=== PATIENT | male | born 1945 | race Caucasian/White ===

== ENCOUNTER 2019-02-05 13:45 | Outpatient (CLI) | payer OTHER ==
--- NOTE | 2019-02-05 16:36 | HP ---
HISTORY OF PRESENT ILLNESS: Mr. Connor Doyle is a very pleasant 74-year-old gentleman, who presents to the wound center for evaluation of a large wound of the scalp, subsequent to surgery for skin carcinoma. The patient states that a lesion of his scalp was noted approximately 4-5 months ago by Dermatology. The patient states he underwent Mohs surgery by Dermatology. He states that a referral to Plastic Surgery was required, however, for complete excision. The patient states that at the time of surgery by Plastic Surgery, Integra was applied to the wound bed. The patient states he underwent a 2nd procedure by Plastic Surgery in [place] for a lesion over the left lateral scalp. The patient states that he has moved from [place] to the [facility] in order to be closer to family. The patient's medical history is significant for chronic lymphocytic leukemia, for which he is presently under the care of Oncology. The patient states that he has seen 2 plastic surgeons here in the [facility]. The patient was referred to the wound center by Dr. Hedrick on 01/22/2019. The patient states that he has been performing wet-to-dry dressing changes for his scalp wound. He states he is performing the wet-to-dry dressing changes with normal saline. The patient states that he has received negative pressure therapy for treatment of his scalp wound. PAST MEDICAL HISTORY: 1. Coronary artery disease. 2. Testicular carcinoma. 3. CLL. PAST SURGICAL HISTORY: Surgery for testicular CA. MEDICATIONS: 1. Brilinta. 2. Vitamin C. ALLERGIES: NO KNOWN DIAGNOSED ALLERGIES. SOCIAL HISTORY: Negative for tobacco use. The patient admits to the consumption of one glass of wine per week. FAMILY HISTORY: Significant for coronary artery disease. The patient's father was diagnosed with coronary artery disease. Family history is negative for diabetes mellitus. PHYSICAL EXAMINATION: VITAL SIGNS: Temperature 97.6, pulse 140, respirations 22, and blood pressure 125/80. GENERAL: A 74-year-old gentleman sitting on chair in examination room, in no acute distress. HEENT: Normocephalic. A large wound of the scalp is present, which measures approximately 12.0 x 13.0 cm. Granulation tissue is present within the wound margins. Green purulent drainage is associated with the wound. No erythema of the skin surrounding the wound is appreciated. No maceration of the skin of the periwound is noted. NECK: No nuchal rigidity. CHEST: Clear to auscultation. CV: Regular rate and rhythm. ABDOMEN: Soft. EXTREMITIES: No clubbing or cyanosis. NEUROLOGIC: Grossly nonfocal. ASSESSMENT AND PLAN: 1. Large wound of scalp as described above. Today, the patient declines the initiation of negative pressure therapy. The patient states he has been treated with p.o. antibiotics. He states he was recently told to discontinue all p.o. antibiotics because of lack of efficacy. Dressing changes of quarter-strength Dakin's in a wet-to-dry fashion will be initiated today. These dressing changes are to be performed on a daily basis after cleansing and irrigation. The patient states he will continue to perform his own dressing changes. I will see Mr. Doyle again in 1 week. A sample of the purulent drainage associated with the scalp wound was obtained with a culturette and sent for aerobic and anaerobic cultures. I will discuss the treatment plan with Dr. Hedrick. The patient states he will consider the initiation of negative pressure therapy when he returns to clinic in 1 week. 2. Chronic lymphocytic leukemia. 3. Coronary artery disease. 4. History of testicular carcinoma. Job ID: [id number]
== END 2019-02-05 13:46 | disposition home or self-care (01) ==
LOC: WCC 13:45
PROVIDERS: ATTEND Family Medicine
DX: T81.89XD Other complications of procedures, not elsewhere classified, subsequent encounter (principal); C91.10 Chronic lymphocytic leukemia of B-cell type not having achieved remission; I25.10 Atherosclerotic heart disease of native coronary artery without angina pectoris; Z85.47 Personal history of malignant neoplasm of testis
CPT/HCPCS: 87070; 87077; 87186; 87205

== ENCOUNTER 2019-02-14 13:13 | Outpatient (CLI) | payer OTHER ==
[~2019-02-14 13:13] MED LIST: Lidocaine 4% Topical Sol 50 ML BOT ONE; Sodium Chloride 0.9% 15 ML NEB ONE
--- NOTE | 2019-02-14 17:26 | PRG ---
DATE OF SERVICE: 02/14/2019 HISTORY: Mr. Connor Doyle is a very pleasant 74-year-old gentleman, who presents to the Wound Center for evaluation of a large wound of the scalp subsequent to surgery for skin carcinoma. The patient previously stated that a lesion of his scalp was noted approximately 4 to 5 months ago by Dermatology. The patient stated that he underwent Mohs surgery by Dermatology. He stated that a referral to Plastic Surgery was required, however, for complete excision. The patient stated that at the time of surgery by Plastic Surgery, Integra was applied to the wound bed. The patient stated that he underwent a 2nd procedure by Plastic Surgery in [place] for lesion over the left lateral scalp. The patient stated that he has moved from [place] to the [facility] area in order to be closer to the family. The patient's medical history is significant for chronic lymphocytic leukemia, for which he is presently under the care of Oncology. The patient stated that he has seen 2 plastic surgeons here in the [facility] area. The patient was referred to the Wound Center by Dr. Hedrick on 01/22/2019. The patient stated that prior to being seen in the Wound Center, he had been performing wet-to-dry dressing changes for his scalp wound. He stated that he had been performing the wet-to-dry dressing changes with normal saline. The patient stated that he had also received negative pressure therapy for treatment of his scalp wound. After being seen in the Wound Center, the patient was placed on dressing changes of quarter-strength Dakin's in a wet-to-dry fashion on a daily basis after cleansing and irrigation. Today, the patient reports significant bleeding associated with his scalp wound. PHYSICAL EXAMINATION: VITAL SIGNS: Temperature 97.6, pulse 122, respirations 24, blood pressure 132/71. HEENT: A large scalp wound is present, which measures approximately 10.0 x 14.5 cm. Granulation tissue is present within the wound margins. No purulent drainage is associated with the wound as at the time of the patient's last visit. No erythema of the skin surrounding the wound is appreciated. No maceration of the skin of the periwound is noted. Hemostasis of the scalp wound was obtained with the use of Surgicel and digital pressure. ASSESSMENT AND PLAN: 1. Large wound of scalp as described above. The patient states that he is amenable to a trial of negative pressure therapy. Adaptic touch was applied to the scalp wound over the Surgicel followed by ABDs. The patient has been instructed to perform dressing changes on a daily basis and as needed. The patient has been instructed that he only needs to change the ABDs alone at the time of dressing changes. Dressing changes of quarter-strength Dakin's in a wet-to-dry fashion on a daily basis after cleansing and irrigation have been discontinued. I will see Mr. Doyle again in 1 week. I have discussed the treatment plan with Dr. Hedrick. At the time of the patient's followup visit in 1 week, consideration will be given to the initiation of negative pressure therapy in conjunction with the placement of MatriStem sheet to the wound bed. The patient states that he understands and is in agreement with the preceding treatment plan. 2. Chronic lymphocytic leukemia. 3. Coronary artery disease. 4. History of testicular carcinoma. Job ID: [id number]
== END 2019-02-14 13:14 | disposition home or self-care (01) ==
LOC: WCC 13:13
PROVIDERS: ATTEND Family Medicine
DX: T81.89XD Other complications of procedures, not elsewhere classified, subsequent encounter (principal); C91.10 Chronic lymphocytic leukemia of B-cell type not having achieved remission; I25.10 Atherosclerotic heart disease of native coronary artery without angina pectoris; Z85.47 Personal history of malignant neoplasm of testis
CPT/HCPCS: A4218

== ENCOUNTER 2019-02-19 14:08 | Outpatient (CLI) | payer OTHER ==
[~2019-02-19 14:08] MED LIST changes: -Lidocaine 4% Topical Sol 50 ML BOT ONE
--- NOTE | 2019-02-19 17:59 | PRG ---
DATE OF SERVICE: 02/19/2019 HISTORY: Mr. Connor Doyle is a very pleasant 74-year-old gentleman, who presents to the Wound Center for evaluation of a large wound of the scalp subsequent to surgery for skin carcinoma. Previously, the patient stated that a lesion of his scalp was noted approximately 4 to 5 months previously by Dermatology. The patient stated that he underwent Mohs surgery by Dermatology. He stated that a referral to Plastic Surgery was required, however, for complete excision. The patient stated that at the time of surgery by Plastic Surgery, Integra was applied to the wound bed. The patient stated that he underwent a 2nd procedure by Plastic Surgery in [place] for lesion over the left lateral scalp. The patient stated that he moved from [place] to the [facility] in order to be closer to family. The patient's medical history significant for chronic lymphocytic leukemia, for which he is presently under the care of Oncology. The patient stated that he had seen two plastic surgeons here in the [facility]. The patient was referred to the Wound Center by Dr. Hedrick on 01/22/2019. The patient stated that prior to being seen in the Wound Center, he had been performing wet-to-dry dressing changes for his scalp wound. He stated that he had been performing wet-to-dry dressing changes with normal saline. The patient stated that he had also received negative pressure therapy for treatment of his scalp wound. After being seen in the Wound Center, the patient was placed on dressing changes of a quarter-strength Dakin's in a wet-to-dry manner on a daily basis after cleansing and irrigation. At the time of the patient's last visit, he reported significant bleeding associated with his scalp wound. Today, the patient states that he has no bleeding associated with the wound of his scalp. PHYSICAL EXAMINATION: VITAL SIGNS: Temperature 97.6, pulse 121, respirations 20, and blood pressure 120/68. SCALP: A large scalp wound is present, which measures approximately 11.0 x 10.2 cm. The dimensions of the wound at the time of the patient's last visit were approximately 10.0 x 14.5 cm. Granulation tissue is present within the wound margins. No purulent drainage is associated with the wound. No erythema of the skin surrounding the wound is present. No maceration of the skin of the periwound is noted. After cleansing of the scalp with normal saline, ACell 7 x 10 cm was applied to the wound bed followed by Adaptic Touch secured with Mastisol and Steri-Strips followed by an ABD. ASSESSMENT AND PLAN: 1. A large wound of scalp as described above. ACell 7 x 10 cm was applied to the scalp wound today. The patient declines negative pressure therapy in conjunction with treatment with ACell. The patient has been instructed to change the ABD alone at the time of dressing changes on a daily basis and as needed. I will see Mr. Doyle again in 1 week. The treatment plan was previously discussed with Dr. Hedrick. At the time of the patient's followup visit in 1 week, consideration will be given to another placement of ACell to the wound bed. The patient states that he understands and is in agreement with the preceding treatment plan. 2. Chronic lymphocytic leukemia. 3. Coronary artery disease. 4. History of testicular carcinoma. Job ID: [id number]
== END 2019-02-19 14:09 | disposition home or self-care (01) ==
LOC: WCC 14:08
PROVIDERS: ATTEND Family Medicine
DX: T81.89XD Other complications of procedures, not elsewhere classified, subsequent encounter (principal); I25.10 Atherosclerotic heart disease of native coronary artery without angina pectoris; C91.10 Chronic lymphocytic leukemia of B-cell type not having achieved remission
CPT/HCPCS: A4218

== ENCOUNTER 2019-03-01 13:00 | Outpatient (CLI) | payer OTHER ==
--- NOTE | 2019-03-01 14:54 | PRG ---
DATE OF SERVICE: 03/01/2019 HISTORY: Mr. Connor Doyle is a very pleasant 74-year-old gentleman, who presents to the Wound Center for evaluation of a large wound of the scalp subsequent to surgery for skin carcinoma. The patient is presently undergoing treatment with MatriStem sheet. The patient has no complaints today. He denies any fever or chills. PHYSICAL EXAMINATION: VITAL SIGNS: Temperature 98.1, pulse 112, blood pressure 144/67. SCALP: A large scalp wound is present, which measures approximately 10.9 x 9.9 cm. The dimensions of the wound at the time of the patient's last visit were approximately 11.0 x 10.2 cm. Granulation tissue is present within the wound margins. No purulent drainage is associated with the wound. No erythema of the skin surrounding the wound is present. No maceration of the skin of the periwound is noted. After cleansing of the scalp with normal saline, MatriStem powder 100 mg was applied to a region of the scalp containing exposed bone. ACell 7 x 10 cm was then applied to the wound bed followed by Adaptic Touch secured with Mastisol and Steri-Strips followed by an ABD. ASSESSMENT AND PLAN: 1. Large wound of scalp as described above. ACell 7 x 10 cm was applied to the scalp wound today. The patient has been instructed to change the ABD alone at the time of dressing changes on a daily basis and as needed. I will see Mr. Doyle again in 2 weeks. The treatment plan was previously discussed with Dr. Hedrick. At the time of the patient's followup visit in 1 week, consideration will be given to another placement of ACell to the wound bed. The patient has been given a prescription for Tylenol No. 3, #30 one to two p.o. q.4 to 6 hours p.r.n. pain. 2. Chronic lymphocytic leukemia. 3. Coronary artery disease. 4. History of testicular carcinoma. Job ID: [id number]
[2019-03-01] MEDS ORDERED: Sodium Chloride 0.9% 15 ML NEB ONE (17:06)
== END 2019-03-01 13:01 | disposition home or self-care (01) ==
LOC: WCC 13:00
PROVIDERS: ATTEND Family Medicine
DX: T81.89XD Other complications of procedures, not elsewhere classified, subsequent encounter (principal); I25.10 Atherosclerotic heart disease of native coronary artery without angina pectoris; C91.10 Chronic lymphocytic leukemia of B-cell type not having achieved remission; Z85.47 Personal history of malignant neoplasm of testis
CPT/HCPCS: A4218; Q4166-KX-JC

== ENCOUNTER 2019-03-15 14:30 | Outpatient (CLI) | payer OTHER ==
--- NOTE | 2019-03-15 14:58 | PRG ---
DATE OF SERVICE: 03/15/2019 HISTORY: Mr. Connor Doyle is a very pleasant 74-year-old gentleman, who presents to the Wound Center for evaluation of a large wound of the scalp subsequent to surgery for skin carcinoma. The patient is currently undergoing treatment with MatriStem sheet. Mr. Doyle has no complaints today. He denies any fever or chills. PHYSICAL EXAMINATION: VITAL SIGNS: Temperature 97.4, pulse 104, respirations 17, and blood pressure 126/59. SCALP: A large scalp wound is present, which measures approximately 10.4 x 9.3 cm. The dimensions of the wound at the time of the patient's last visit were approximately 10.9 x 9.9 cm. Granulation tissue is present within the wound margins. No purulent drainage is associated with the wound. No erythema of the skin surrounding the wound is present. No maceration of the skin of the periwound is noted. After cleansing of the scalp with normal saline, MatriStem sheet 7 x 10 cm was applied to the wound bed followed by Adaptic Touch secured with Mastisol and Steri-Strips followed by an ABD. ASSESSMENT AND PLAN: 1. Large wound of scalp as described above. MatriStem sheet 7 x 10 cm was applied to the scalp wound today. The patient has been instructed to change the ABD alone at the time of dressing changes on a daily basis and as needed. I will see Mr. Doyle again in 1 week. The treatment plan was previously discussed with Dr. Hedrick. At the time of the patient's followup visit in 1 week, consideration will be given to another placement of MatriStem sheet to the wound bed. 2. Chronic lymphocytic leukemia. 3. Coronary artery disease. 4. History of testicular carcinoma. Job ID: [id number]
== END 2019-03-15 14:31 | disposition home or self-care (01) ==
LOC: WCC 14:30
PROVIDERS: ATTEND Family Medicine
DX: S01.00XD Unspecified open wound of scalp, subsequent encounter (principal); I25.10 Atherosclerotic heart disease of native coronary artery without angina pectoris; C91.10 Chronic lymphocytic leukemia of B-cell type not having achieved remission; Z85.47 Personal history of malignant neoplasm of testis
CPT/HCPCS: Q4166-KX-JC

== ENCOUNTER 2019-03-22 13:41 | Outpatient (CLI) | payer OTHER ==
--- NOTE | 2019-03-22 14:33 | PRG ---
DATE OF SERVICE: 03/22/2019 SUBJECTIVE HISTORY: Mr. Connor Doyle is a very pleasant 74-year-old gentleman, who presents to the Wound Center for evaluation of a large wound of the scalp subsequent to surgery for skin carcinoma. The patient is presently undergoing treatment with MatriStem sheet. The patient has no complaints today. He denies any fever or chills. OBJECTIVE: VITAL SIGNS: Temperature 97.4, pulse 94, respirations 18, and blood pressure 119/58. SCALP: A large scalp wound is present, which measures approximately 9.5 x 10.1 cm. The dimensions of the wound at the time of the patient's last visit were approximately 10.4 x 9.3 cm. Granulation tissue is present within the wound margins. No purulent drainage is associated with the wound. No erythema of the skin surrounding the wound is present. No maceration of the skin of the periwound is noted. After cleansing of the scalp with normal saline, MatriStem sheet 7 x 10 cm was applied to the wound bed followed by Adaptic Touch secured with Mastisol and Steri-Strips followed by an ABD. ASSESSMENT AND PLAN: 1. Large wound of scalp as described above, MatriStem sheet 7 x 10 cm was applied to the scalp wound today. The patient has been instructed to change the ABD alone at the time of dressing changes on a daily basis and as needed. I will see Mr. Doyle again in 1 week. The treatment plan was previously discussed with Dr. Hedrick. At the time of the patient's followup visit in 1 week consideration will be given to another placement of MatriStem sheet to the wound bed. 2. Chronic lymphocytic leukemia. 3. Coronary artery disease. 4. History of testicular carcinoma. Job ID: [id number]
[2019-03-22] MEDS ORDERED: Sodium Chloride 0.9% 15 ML NEB ONE (15:21)
== END 2019-03-22 13:42 | disposition home or self-care (01) ==
LOC: WCC 13:41
PROVIDERS: ATTEND Family Medicine
DX: T81.89XD Other complications of procedures, not elsewhere classified, subsequent encounter (principal); I25.10 Atherosclerotic heart disease of native coronary artery without angina pectoris; C91.10 Chronic lymphocytic leukemia of B-cell type not having achieved remission; Z85.47 Personal history of malignant neoplasm of testis
CPT/HCPCS: A4218; Q4166-KX-JC

== ENCOUNTER 2019-03-29 13:38 | Outpatient (CLI) | payer OTHER ==
--- NOTE | 2019-03-29 14:56 | PRG ---
DATE OF SERVICE: 03/29/2019 SUBJECTIVE: Mr. Connor Doyle is a very pleasant 74-year-old gentleman, who presents to the Wound Center for evaluation of a large wound of the scalp subsequent to surgery for skin carcinoma. The patient is currently undergoing treatment with MatriStem sheet. The patient has no complaints today. He denies any fever or chills. OBJECTIVE: VITAL SIGNS: Temperature 97.5, pulse 92, respirations 18, blood pressure 119/57. SCALP: A large scalp wound is present, which measures approximately 9.7 x 8.9 cm. The dimensions of the wound at the time of the patient's last visit were approximately 9.5 x 10.1 cm. Granulation tissue is present within the wound margins. No purulent drainage is associated with the wound. No erythema of the skin surrounding the wound is present. No maceration of the skin of the periwound is noted. After cleansing of the scalp with normal saline, MatriStem sheet 7 x 10 cm was applied to the wound bed followed by Hydrogel and Adaptic Touch. The Adaptic Touch was secured to the periwound with Steri-Strips, and ABD was then applied over the Adaptic Touch. ASSESSMENT AND PLAN: 1. Large wound of scalp as described above. MatriStem sheet 7 x 10 cm was applied to the scalp wound today. The patient has been instructed to change the ABD alone at the time of dressing changes on a daily basis and is needed. The treatment plan was previously discussed with Dr. Hedrick. Mr. Doyle states he will contact the Wound Center in order to schedule a followup visit. 2. Chronic lymphocytic leukemia. 3. Coronary artery disease. 4. History of testicular carcinoma. Job ID: [id number]
== END 2019-03-29 13:39 | disposition home or self-care (01) ==
LOC: WCC 13:38
PROVIDERS: ATTEND Family Medicine
DX: T81.89XD Other complications of procedures, not elsewhere classified, subsequent encounter (principal); I25.10 Atherosclerotic heart disease of native coronary artery without angina pectoris; C91.10 Chronic lymphocytic leukemia of B-cell type not having achieved remission; Z85.47 Personal history of malignant neoplasm of testis
CPT/HCPCS: Q4166-KX-JC

== ENCOUNTER 2019-07-24 06:21 | Emergency (ER) | payer MEDICARE ==
[2019-07-24] MEDS ORDERED: Cefepime 2 GM VIAL ONE (07:24)
--- NOTE | 2019-07-24 07:28 | RAD ---
4 VIEWS RIGHT ELBOW: Date: 07/24/2019 HISTORY: Fall with right elbow pain. FINDINGS: Four views of the right elbow show no evidence of acute fracture or dislocation. No elbow effusion is seen. No degenerative changes are present. IMPRESSION: No evidence of acute osseous abnormality. POS: C
[2019-07-24 07:32] LABS: Mean Corpuscular HGB CONC 30.3 g/dL (32.0-36.0); Mean Corpuscular Hemoglobin 25.3 pg (27.0-31.0); Mean Corpuscular Volume 83.5 fL (78.0-98.0); Mean Platelet Volume 10.4 fL (7.4-10.4); Platelet Count 344 thou/uL (130-400); RBC Distribution Width 17.4 % (11.5-14.5); Red Blood Cell (RBC) Count 4.72 mill/uL (4.70-6.10); White Blood Cell (WBC) Count 19.6 thou/uL (4.8-10.8)
[2019-07-24 07:48] LABS: ALT (SGPT) 8 U/L (8-55); AST (SGOT) 9 U/L (5-34); Albumin 3.6 g/dL (3.4-4.8); Alkaline Phosphatase 80 U/L (40-110); Anion Gap 26 mmol/L (10-20); BUN (Urea Nitrogen) 65 mg/dL (8.4-25.7); Bilirubin, Total 0.8 mg/dL (0.2-1.2); Calc. Creatinine Clearance 0 mL/min (70-130); Carbon Dioxide 26 mmol/L (23-31); Chloride 94 mmol/L (98-107); Estimated GFR-MDRD 21; Globulin 2.6 g/dL (2.4-3.5); Glucose 159 mg/dL (83-110); Potassium 4.5 mmol/L (3.5-5.1); Protein, Total 6.2 g/dL (5.8-8.1); Sodium 141 mmol/L (136-145)
[2019-07-24 07:49] LABS: Calcium 14.2 mg/dL (7.8-10.44)
[2019-07-24 07:55] LABS: Band 15 % (5-11); Lymphocytes 38 % (21-51); MDiff Complete? YES; Monocytes 2 % (0-10); Neutrophil 45 % (42-75); Platelet Morphology Comment Appears Adequate; Polychromasia SLIGHT = 2-3 cells (100X) (0-2/hpf)
[2019-07-24] MEDS ORDERED: Vancomycin 1 GM/200 ML BAG ONE (08:00)
[2019-07-24 08:10] LABS: CKMB 2.5 ng/mL (0-6.6)
[2019-07-24] MEDS ORDERED: Morphine 4 MG/ML VIAL ONE ×2 (08:20→12:45)
[2019-07-24] MEDS ORDERED: Ondansetron PF 4 MG/2 ML Vial ONE (08:21)
--- NOTE | 2019-07-24 08:28 | RAD ---
CHEST 1 VIEW: Date: 07/24/2019 HISTORY: Injury from a fall at home. FINDINGS: Old granuloma calcifications. Heart size is normal. No confluent pneumonia, overt edema, pleural effu farshad, or pneumothorax. IMPRESSION: No significant acute intrathoracic disease. Atherosclerosis of aorta. POS: RRE
--- NOTE | 2019-07-24 08:29 | CT ---
CT BRAIN WITHOUT CONTRAST: Date: 07/24/2019 HISTORY: Fall. Trauma. FINDINGS: No evidence of acute infarct, hemorrhage, midline shift, or abnormal extra-axial fluid collections ar e seen. The ventricular size is appropriate and the basilar cisterns are patent. The bony calvarium i s intact. There is fluid in the right mastoid air cells. IMPRESSION: No CT evidence of acute intracranial process. POS: MZA
--- NOTE | 2019-07-28 09:48 | EKG ---
Test Reason : Blood Pressure : / mmHG Vent. Rate : 111 BPM Atrial Rate : 108 BPM P-R Int : 000 ms QRS Dur : 082 ms QT Int : 376 ms P-R-T Axes : 000 066 058 degrees QTc Int : 511 ms Accelerated Junctional rhythm Inferior infarct , possibly acute Anterior infarct , possibly acute Lateral injury pattern * ACUTE NM * Abnormal ECG Confirmed by JAMMIE DIAMNOD DO ([id number]), news videotape editor TONY BOWEN ([id number]) on 07/28/2019 9:48:03 AM Referred By: Confirmed By:JAMMIE DIAMOND DO
== END 2019-07-24 13:54 | disposition hospice, inpatient (51) ==
LOC: ERS 06:21
DX: A41.9 Sepsis, unspecified organism (principal); L03.90 Cellulitis, unspecified
CPT/HCPCS: 70450; 71045; 73080; 80053; 82553; 83605; 84484; 85025; 87040; 93005; J0692; J2270; J2405; J3370; 96361; 96365; 96375; 96376